=== PATIENT | male | born 1995 | race Caucasian/White ===

== ENCOUNTER 2023-11-17 00:26 | Emergency (ER) | payer OTHER ==
[~2023-11-17] VITALS: Ht 180.3 cm; Wt 81.6 kg
[2023-11-17 00:34] VITALS: BP 105/73; PULSE 75; RESP 16; TEMP 97.8; O2SAT 98
[2023-11-17 00:41] VITALS: BP 105/73; PULSE 75; RESP 16; TEMP 97.8; O2SAT 98
== END 2023-11-17 01:06 | disposition home or self-care (01) ==
LOC: MED 00:26
DX: Z02.89 Encounter for other administrative examinations (principal); V89.2XXA Person injured in unspecified motor-vehicle accident, traffic, initial encounter; Y93.89 Activity, other specified; Y92.410 Unspecified street and highway as the place of occurrence of the external cause; Y99.8 Other external cause status
CPT/HCPCS: 99283